=== PATIENT | male | born 1980 | race Caucasian/White ===

== ENCOUNTER 2020-06-28 19:15 | Emergency (ER) | payer OTHER ==
[~2020-06-28] VITALS: Ht 177.8 cm; Wt 127.0 kg
[2020-06-28 19:18] VITALS: BP 151/93
--- NOTE | 2020-06-28 22:53 | NUR ---
PT TO CT WITH TECH AT THIS TIME.
== END 2020-06-29 00:04 | disposition home or self-care (01) ==
LOC: ED 19:45
DX: S52.042A Displaced fracture of coronoid process of left ulna, initial encounter for closed fracture (principal); M25.522 Pain in left elbow; W18.39XA Other fall on same level, initial encounter; Y93.51 Activity, roller skating (inline) and skateboarding; Y92.410 Unspecified street and highway as the place of occurrence of the external cause; Y99.8 Other external cause status
CPT/HCPCS: 29105; 99284